=== PATIENT | male | born 1990 | race Caucasian/White ===

== ENCOUNTER → 2021-02-01 | Outpatient (CLI) | payer MEDICAID, OTHER | LOC: M LABSMTC 12:20 | PROVIDERS: ATTEND Pediatrics | DX: Z20.822 Contact with and (suspected) exposure to COVID-19 (principal) ==

== ENCOUNTER 2021-02-08 09:41 | Emergency (ER) | payer OTHER ==
[~2021-02-08] VITALS: Ht 188 cm; Wt 75.5 kg
[2021-02-08 09:42] VITALS: BP 113/83
[2021-02-08] MEDS ORDERED: PRED20TA PO (13:10)
[2021-02-08] MEDS ORDERED: CYCL-707 PO (13:10)
== END 2021-02-08 13:33 | disposition home or self-care (01) ==
LOC: M ED 09:41
DX: U07.1 COVID-19 (principal); M62.830 Muscle spasm of back; Z88.2 Allergy status to sulfonamides

== ENCOUNTER 2023-03-17 02:23 | Emergency (ER) | payer OTHER, SELFPAY ==
[~2023-03-17] VITALS: Ht 188 cm; Wt 73.0 kg
[2023-03-17 02:23] VITALS: BP 129/71; TEMP 98.3; O2SAT 98
[~2023-03-17 02:23] MED LIST: CYCL-707 PO; PRED20TA PO
== END 2023-03-17 05:49 | disposition left against medical advice (07) ==
LOC: M ED 02:23
DX: Z53.21 Procedure and treatment not carried out due to patient leaving prior to being seen by health care provider (principal)

== ENCOUNTER 2024-11-04 23:51 | Emergency (ER) | payer OTHER, SELFPAY ==
[~2024-11-04] VITALS: Ht 188 cm; Wt 76.9 kg
[2024-11-05] MEDS ORDERED: MEDR4PAK PO (03:41)
[2024-11-05] MEDS ORDERED: TRAM50TA2 PO (03:41)
[2024-11-05] MEDS ORDERED: IBUP600T42 PO (03:44)
[2024-11-05] MEDS: IBUPROFEN 800 MG TAB PO ONE (03:53)
[2024-11-05 04:30] VITALS: BP 120/72; TEMP 97.5
[2024-11-05] MEDS: traMADol 50 MG TAB (HOME DOSE PACK) PO ONE (04:33)
[2024-11-05 04:36] VITALS: O2SAT 98
== END 2024-11-05 04:39 | disposition home or self-care (01) ==
LOC: M ED 23:51
DX: S62.336A Displaced fracture of neck of fifth metacarpal bone, right hand, initial encounter for closed fracture (principal); S60.229A Contusion of unspecified hand, initial encounter; S00.83XA Contusion of other part of head, initial encounter; S20.219A Contusion of unspecified front wall of thorax, initial encounter; Y04.8XXA Assault by other bodily force, initial encounter; Y92.410 Unspecified street and highway as the place of occurrence of the external cause; Y93.9 Activity, unspecified; Y99.9 Unspecified external cause status; Z88.2 Allergy status to sulfonamides